=== PATIENT | female | born 1995 | race Caucasian/White ===

== ENCOUNTER 2016-08-15 14:14 | Emergency (ER) | payer SELFPAY ==
[2016-08-15 14:21] VITALS: BP 106/71
--- NOTE | 2016-08-15 15:34 | UC ---
Head Injury HPI - HPI Summary HPI Summary: hit her head on a car trunk that was falling last night--abrasion on left side of head in hair line---left ok this morning but sx of headache, nausea foggy feeling returned this afternoon - History Of Current Complaint Chief Complaint: UCHeadInjury Stated Complaint: HEAD INJURY Time Seen by Provider: 08/15/16 15:17 Hx Obtained From: Patient Hx Last Menstrual Period: 08/10/16 ?: No Mechanism Of Injury: HIt head Onset/Duration: Sudden Onset, Lasting Days - 1, Still Present Severity Currently: Moderate Severity Initially: Moderate Pain Intensity: 5 Pain Scale Used: 0-10 Numeric Character: Throbbing Aggravating Factor(s): Nothing Alleviating Factor(s): Nothing Associated Signs And Symptoms: Positive: Nausea. Negative: Confusion, Memory Loss, Neck Pain - Allergies/Home Medications Allergies/Adverse Reactions: Allergies Allergy/AdvReac Type Severity Reaction Status Date / Time No Known Allergies Allergy Verified 10/10/15 09:08 PMH/Surg Hx/FS Hx/Imm Hx Previously Healthy: Yes - Surgical History Surgical History: Yes Surgery Procedure, Year, and Place: [id number] - Family History Known Family History: Positive: Other Negative: Cardiac Disease, Hypertension, Diabetes Family History: mother with gal bladder disease - Social History Occupation: Employed Full-time - [employer] Lives: With Family Alcohol Use: Occasionally Substance Use Type: None Smoking Status (MU): Never Smoked Tobacco Review of Systems Constitutional: Negative Skin: Negative Eyes: Negative ENT: Negative Respiratory: Negative Cardiovascular: Negative Gastrointestinal: Nausea Genitourinary: Negative Motor: Negative Neurovascular: Negative Musculoskeletal: Negative Neurological: Headache Psychological: Negative All Other Systems Reviewed And Are Negative: Yes Physical Exam Triage Information Reviewed: Yes Appearance: Well-Appearing, No Pain Distress, Well-Nourished Vital Signs: Initial Vital Signs Temp 99.9 F 08/15/16 14:17 Pulse 80 08/15/16 14:17 Resp 18 08/15/16 14:17 BP 106/71 08/15/16 14:17 Pulse Ox 99 08/15/16 14:17 Vital Signs Reviewed: Yes Eye Exam: Normal Eyes: Positive: Conjunctiva Clear, Other: - SILVIA, EOMI, Fundascopic exam wnl ENT Exam: Normal ENT: Positive: Normal ENT inspection, Hearing grossly normal, Pharynx normal, TMs normal. Negative: Nasal congestion, Nasal drainage Dental Exam: Normal Neck exam: Normal Neck: Positive: Supple, Nontender, No Lymphadenopathy Respiratory Exam: Normal Respiratory: Positive: Chest non-tender, Lungs clear, Normal breath sounds, No respiratory distress, No accessory muscle use Cardiovascular Exam: Normal Cardiovascular: Positive: RRR, No Murmur, Pulses Normal, Brisk Capillary Refill Musculoskeletal Exam: Normal Musculoskeletal: Positive: Strength Intact, ROM Intact, No Edema Neurological Exam: Normal Neurological: Positive: Alert, Muscle Tone Normal Psychological Exam: Normal Skin Exam: Other Skin: Positive: Other - abrasion on left side of forehead in hairline Head Injury Course/Dx - Course Course Of Treatment: concussion instruction rest slow return to work,tylenol, ibuprofen - Differential Dx/Diagnosis Differential Diagnosis/HQI/PQRI: Concussion With LOC, Contusion Provider Diagnoses: Concusion, abrasion Discharge - Discharge Plan Condition: Stable Disposition: HOME Patient Education Materials: Concussion (ED), Post Concussion Syndrome (ED) Forms: *Work Release Referrals: [facility] [place] [facility] REFERRAL [Outside] - 3 Days
== END 2016-08-15 15:46 | disposition home or self-care (01) ==
LOC: UCEAST 14:14
DX: S06.0X0A Concussion without loss of consciousness, initial encounter (principal); S00.81XA Abrasion of other part of head, initial encounter; W20.8XXA Other cause of strike by thrown, projected or falling object, initial encounter; Y93.9 Activity, unspecified; Y92.9 Unspecified place or not applicable; R11.0 Nausea
CPT/HCPCS: 99211; G0463

== ENCOUNTER 2016-09-14 22:59 | Emergency (ER) | payer BC ==
--- NOTE | 2016-09-14 23:20 | ED ---
Napoleon Perdue Benjamin, scribed for Jose Valero MD on 09/14/16 at 2312 . Substance Abuse/Use - HPI Summary HPI Summary: 21yo female BIBA after substance abuse. [place] [employer] [place]. Pt states ingesting psychedelic mushrooms today. Per EMS, pt reported N/V. Pt is intoxicated and is unable to give full history. Level 5 caveat. - History Of Current Complaint Chief Complaint: EDNauseaVomitDiarrh Stated Complaint: N/V Time Seen by Provider: 09/14/16 23:08 Hx Obtained From: EMS Hx From Patient Unobtainable Due To: Other - intoxicated Hx Last Menstrual Period: 08/10/16 Ingestion History: Type/Name Of Drug - psychedelic mushrooms Overdose Characteristics: Oral Timing Of Abuse: Binge Use Severity Initially: Moderate Severity Currently: Moderate Aggravating Factor(s): Nothing Alleviating Factor(s): Nothing Associated Signs And Symptoms: Nausea, Vomiting - Allergies/Home Medications Allergies/Adverse Reactions: Allergies Allergy/AdvReac Type Severity Reaction Status Date / Time No Known Allergies Allergy Verified 09/14/16 23:56 PMH/Surg Hx/FS Hx/Imm Hx Previously Healthy: No - Pt is intoxicated and is unable to give full history. Level 5 caveat. - Surgical History Surgery Procedure, Year, and Place: 2009 - Family History Known Family History: Positive: Other Negative: Cardiac Disease, Hypertension, Diabetes Family History: mother with gal bladder disease - Social History Alcohol Use: Occasionally Substance Use Type: Reports: None Smoking Status (MU): Never Smoked Tobacco Review of Systems - ROS Summary Review of Systems Summary: Pt is intoxicated and is unable to give full history. Level 5 caveat. Positive: Vomiting, Nausea All Other Systems Reviewed And Are Negative: No Physical Exam Triage Information Reviewed: Yes Vital Signs On Initial Exam: Initial Vitals Temp Pulse Resp BP Pulse Ox 97.8 F 94 16 109/67 100 09/14/16 23:08 09/14/16 23:08 09/14/16 23:08 09/14/16 23:08 09/14/16 23:08 Vital Signs Reviewed: Yes Appearance: Positive: No Pain Distress Skin: Positive: Warm Head/Face: Positive: Normal Head/Face Inspection Eyes: Positive: CLARISA ENT: Positive: Hearing grossly normal Neck: Positive: Supple Respiratory/Lung Sounds: Positive: Clear to Auscultation, Breath Sounds Present Cardiovascular: Positive: RRR Abdomen Description: Positive: Nontender, Soft Bowel Sounds: Positive: Present Musculoskeletal: Positive: Strength/ROM Intact Neurological: Positive: Alert, Oriented to Person Place, Time Diagnostics - Vital Signs Vital Signs Temp Pulse Resp BP Pulse Ox 09/14/16 23:08 97.8 F 94 16 109/67 100 - Laboratory Lab Statement: Any lab studies that have been ordered have been reviewed, and results considered in the medical decision making process. Re-Evaluation - Re-Evaluation First Eval Change: Improved - feels better. tolerating po Course/Dx - Diagnoses Provider Diagnoses: Substance abuse Discharge - Discharge Plan Condition: Stable Disposition: HOME Patient Education Materials: Polysubstance Abuse (ED) Referrals: No Primary Care Phys,NOPCP [Primary Care Provider] - The documentation as recorded by the Napoleon guzman Benjamin accurately reflects the service I personally performed and the decisions made by me, Jose Valero MD.
[2016-09-15] MEDS ORDERED: Ondansetron TAB* 4 MG PO ONE (02:53)
[2016-09-15 03:12] VITALS: BP 94/56
== END 2016-09-15 04:03 | disposition home or self-care (01) ==
LOC: ED 22:59
DX: F19.10 Other psychoactive substance abuse, uncomplicated (principal); R11.2 Nausea with vomiting, unspecified
CPT/HCPCS: 99282; A9270-GY